=== PATIENT | female | born 1990 | race Caucasian/White ===

== ENCOUNTER → 2016-12-13 | Outpatient (CLI) | payer OTHER ==
[2016-12-13 12:33] LABS: URINE APPEARANCE CLEAR (CLEAR); URINE BILIRUBIN NEG (NEG); URINE COLOR YELLOW; URINE NITRITE NEG (NEG); UROBILINOGEN NEG (NEG)
[2016-12-13 12:37] LABS: MANUAL MICROSCOPIC REQUIRED? NO; REVIEW REQ? NO
== END | disposition home or self-care (01) ==
LOC: C.LABSPEC 12:06
PROVIDERS: ATTEND Obstetrics & Gynecology
DX: O09.90 Supervision of high risk pregnancy, unspecified, unspecified trimester (principal); Z3A.00 Weeks of gestation of pregnancy not specified

== ENCOUNTER → 2016-12-15 | Outpatient (CLI) | payer OTHER | END | disposition home or self-care (01) | LOC: C.PAPS 13:23 | PROVIDERS: ATTEND Obstetrics & Gynecology | DX: O36.80X0 Pregnancy with inconclusive fetal viability, not applicable or unspecified (principal); Z3A.00 Weeks of gestation of pregnancy not specified ==

== ENCOUNTER → 2016-12-15 | Outpatient (CLI) | payer OTHER ==
[2016-12-15 12:42] LABS: BASO % 0.2 %; BASO ABS # 0.02 K/uL (0-0.2); COMPLETE YES; EOS % 3.9 %; HEMATOCRIT 42.3 % (37-47); IG% 0.2 %; LYMPH % 30.6 %; LYMPH ABS # 2.49 K/uL (1.2-3.4); MEAN CELL VOLUME 95.9 fL (80-100); MEAN CORPUSCULAR HEMOGLOBIN 32.2 pg (25-34); MEAN CORPUSCULAR HGB CONC 33.6 g/dl (32-36); MEAN PLATELET VOLUME 9.6 fL (7.4-10.4); MONO % 7.1 %; PLATELET COUNT 397 K/uL (130-400); RED BLOOD COUNT 4.41 M/uL (4.2-5.4); WHITE BLOOD COUNT 8.14 K/uL (4.8-10.8)
[2016-12-17 15:39] LABS: CHLAMYDIA TRACH RNA*** NOT DETECTED (NOT DETECTED); GC (NEIS GONORRHOEAE)RNA** NOT DETECTED (NOT DETECTED)
== END | disposition home or self-care (01) ==
LOC: C.LAB1850 11:01
PROVIDERS: ATTEND Obstetrics & Gynecology
DX: O09.90 Supervision of high risk pregnancy, unspecified, unspecified trimester (principal); O36.80X0 Pregnancy with inconclusive fetal viability, not applicable or unspecified; Z3A.00 Weeks of gestation of pregnancy not specified

== ENCOUNTER → 2016-12-29 | Outpatient (CLI) | payer OTHER ==
[2016-12-29 13:08] LABS: BASO % 0.1 %; BASO ABS # 0.01 K/uL (0-0.2); COMPLETE YES; EOS % 4.1 %; HEMATOCRIT 33.3 % (37-47); IG% 0.1 %; LYMPH % 27.1 %; LYMPH ABS # 1.98 K/uL (1.2-3.4); MEAN CELL VOLUME 96.2 fL (80-100); MEAN CORPUSCULAR HEMOGLOBIN 32.9 pg (25-34); MEAN CORPUSCULAR HGB CONC 34.2 g/dl (32-36); MEAN PLATELET VOLUME 9.7 fL (7.4-10.4); MONO % 5.7 %; NEUT % 62.9 %; PLATELET COUNT 384 K/uL (130-400); RED BLOOD COUNT 3.46 M/uL (4.2-5.4); WHITE BLOOD COUNT 7.31 K/uL (4.8-10.8)
== END | disposition home or self-care (01) ==
LOC: C.LAB1850 11:37
PROVIDERS: ATTEND Obstetrics & Gynecology
DX: O02.1 Missed abortion (principal)

== ENCOUNTER → 2017-01-05 | Outpatient (CLI) | payer OTHER | END | disposition home or self-care (01) | LOC: C.LAB1850 10:34 | PROVIDERS: ATTEND Obstetrics & Gynecology | DX: O02.1 Missed abortion (principal) ==

== ENCOUNTER → 2017-01-12 | Outpatient (CLI) | payer OTHER | END | disposition home or self-care (01) | LOC: C.LAB1850 11:55 | PROVIDERS: ATTEND Obstetrics & Gynecology | DX: O02.1 Missed abortion (principal) ==

== ENCOUNTER → 2017-01-22 | Outpatient (CLI) | payer OTHER | END | disposition home or self-care (01) | LOC: C.LAB1850 12:18 | PROVIDERS: ATTEND Obstetrics & Gynecology | DX: O02.1 Missed abortion (principal) ==

== ENCOUNTER → 2017-01-29 | Outpatient (CLI) | payer OTHER | END | disposition home or self-care (01) | LOC: C.LAB1850 10:21 | PROVIDERS: ATTEND Obstetrics & Gynecology | DX: O02.1 Missed abortion (principal) ==

== ENCOUNTER → 2017-08-08 | Outpatient (CLI) | payer OTHER | END | disposition home or self-care (01) | LOC: C.LAB1850 15:52 | PROVIDERS: ATTEND Obstetrics & Gynecology | DX: Z32.01 Encounter for pregnancy test, result positive (principal); O09.299 Supervision of pregnancy with other poor reproductive or obstetric history, unspecified trimester ==

== ENCOUNTER → 2017-08-10 | Outpatient (CLI) | payer OTHER | END | disposition home or self-care (01) | LOC: C.LAB1850 16:05 | PROVIDERS: ATTEND Obstetrics & Gynecology | DX: Z32.01 Encounter for pregnancy test, result positive (principal); O09.299 Supervision of pregnancy with other poor reproductive or obstetric history, unspecified trimester ==

== ENCOUNTER → 2017-09-04 | Outpatient (CLI) | payer OTHER ==
[2017-09-04 12:02] LABS: BASO % 0.2 %; BASO ABS # 0.02 K/uL (0-0.2); EOS % 1.9 %; HEMATOCRIT 39.9 % (37-47); HEMOGLOBIN 13.7 g/dL (12.0-16.0); IG# 0.04 K/uL (0.00-0.02); LYMPH % 19.5 %; LYMPH ABS # 2.08 K/uL (1.2-3.4); MEAN CELL VOLUME 93.4 fL (80-100); MEAN CORPUSCULAR HEMOGLOBIN 32.1 pg (25-34); MEAN CORPUSCULAR HGB CONC 34.3 g/dl (32-36); MEAN PLATELET VOLUME 9.7 fL (7.4-10.4); MONO % 5.3 %; MONO ABS # 0.57 K/uL (0.11-0.59); NEUT % 72.7 %; NEUT ABS # 7.76 K/uL (1.4-6.5); PLATELET COUNT 364 K/uL (130-400); RED CELL DISTRIBUTION WIDTH CV 12.9 % (11.5-14.5); WHITE BLOOD COUNT 10.67 K/uL (4.8-10.8)
== END | disposition home or self-care (01) ==
LOC: C.LAB1850 11:12
PROVIDERS: ATTEND Obstetrics & Gynecology
DX: Z34.91 Encounter for supervision of normal pregnancy, unspecified, first trimester (principal)

== ENCOUNTER → 2017-09-04 | Outpatient (CLI) | payer OTHER | END | disposition home or self-care (01) | LOC: C.PAPS 14:48 | PROVIDERS: ATTEND Obstetrics & Gynecology | DX: Z12.4 Encounter for screening for malignant neoplasm of cervix (principal) ==

== ENCOUNTER → 2017-09-04 | Outpatient (CLI) | payer OTHER | END | disposition home or self-care (01) | LOC: C.LABSPEC 11:02 | PROVIDERS: ATTEND Obstetrics & Gynecology | DX: Z34.91 Encounter for supervision of normal pregnancy, unspecified, first trimester (principal) ==

== ENCOUNTER → 2017-10-08 | Outpatient (CLI) | payer OTHER ==
[2017-10-08 10:05] LABS: ALBUMIN 3.1 gm/dl (3.4-5.0); ALKALINE PHOSPHATASE 81 U/L (45-117); ALT/SGPT 18 U/L (12-78); AST/SGOT 11 U/L (15-37); TOTAL PROTEIN 7.6 gm/dl (6.4-8.2); URIC ACID 2.6 mg/dl (2.6-7.2)
== END | disposition home or self-care (01) ==
LOC: C.LAB1850 08:52
PROVIDERS: ATTEND Obstetrics & Gynecology
DX: O10.919 Unspecified pre-existing hypertension complicating pregnancy, unspecified trimester (principal); Z3A.00 Weeks of gestation of pregnancy not specified

== ENCOUNTER → 2017-11-07 | Outpatient (CLI) | payer OTHER | END | disposition home or self-care (01) | LOC: C.LAB1850 15:37 | PROVIDERS: ATTEND Obstetrics & Gynecology | DX: O09.92 Supervision of high risk pregnancy, unspecified, second trimester (principal) ==

== ENCOUNTER → 2017-11-22 | Outpatient (CLI) | payer OTHER | END | disposition home or self-care (01) | LOC: C.LAB1850 09:22 | PROVIDERS: ATTEND Obstetrics & Gynecology | DX: O28.1 Abnormal biochemical finding on antenatal screening of mother (principal) ==

== ENCOUNTER → 2018-03-29 | Outpatient (CLI) | payer OTHER | END | disposition home or self-care (01) | LOC: C.LABSPEC 13:57 | PROVIDERS: ATTEND Obstetrics & Gynecology | DX: O09.893 Supervision of other high risk pregnancies, third trimester (principal) ==

== ENCOUNTER 2019-06-18 07:36 | Inpatient (IN) ==
[2019-06-18] MEDS ORDERED: OXYTOCIN 30 UNITS/500 ML BAG IV PRN ×3 (07:48→22:05)
[2019-06-18 08:07] LABS: Hematocrit (blood only) 35.3 % (37-47); Hemoglobin 11.9 g/dL (12.0-16.0); Mean Corpuscular Hemoglobin 30.7 pg (25-34); Mean Platelet Volume 9.1 fL (7.4-10.4); Platelet Count 328 K/uL (130-400); RDW Coefficient of Variation 13.7 % (11.5-14.5); RDW Standard Deviation 44.9 fL (36.4-46.3); Red Blood Count 3.88 M/uL (4.2-5.4); White Blood Count 11.38 K/uL (4.8-10.8)
[2019-06-18 08:09] LABS: Mean Corpuscular Hgb Conc 33.7 g/dL (32-36)
[2019-06-18] MEDS: LACTATED RINGER'S 1,000 ML IV PRN ×4 (08:28→21:35)
--- NOTE | 2019-06-18 08:53 | History & Physical Report ---
Date of Service June 18, 2019 Assessment & Plan (1) Diet controlled gestational diabetes mellitus (GDM), antepartum: First sugar was 147, however, she ate a bagel this am, so will repeat the bs in one hour. Want to keep her between 80-120. Has been diet controlled. (2) Chronic hypertension in : BPs good. No s/s of pet. Plan pitocin induction, epidural on demand. arom when needed/indicated. Anticipate . History of Present Illness Chief Complaint: induction Primary Care Provider: NO PCP Patient is a 29yowf with iup at 38 weeks who presents to labor and delivery for induction of labor for a hx of chronic hypertension. Her pressures have been well controlled this and having induction according to acog justine for the management of chtn in . Patient also has a hx of gdm in previous and is being treated as such in this . Notes her sugars have been well controlled on diet. Growth scan at 36 weeks showed efw 43%, nl dvp. Patient notes no real contractions. no lof/vb. +fm. Patient had palpitations in this and had holter monitor in the summer and consult with cards without significant findings. Denies s/s of PET at this time. BPs good. labsO+/ab-/ri/rprnr/hepb-/hiv-/gc/ct-/declined cf/sma/ declines genetics/gbs negative Allergies Allergy/AdvReac Type Severity Reaction Status Date / Time No Known Allergies Allergy Verified 06/17/19 13:42 Home Medications Home Medications Medication Instructions Recorded Confirmed Type albuterol sulfate 90 mcg/actuation 90 mcg INHALATION Q4 PRN gm 03/04/19 06/18/19 History aerosol inhaler aspirin 81 mg tablet,delayed 81 mg PO DAILY 03/04/19 06/18/19 History release prenat.vits,karli,rrd-vnqg-ytenb 1 tab PO DAILY 03/04/19 06/18/19 History Patient History Medical History (Updated 06/18/19 @ 08:48 by Cadence Irizarry MD, FACOG) Asthma Chronic hypertension affecting Diet controlled gestational diabetes mellitus DJD (degenerative joint disease) History of asthma History of pre-eclampsia History of spontaneous History of varicella Migraine Surgical History (Updated 04/05/19 @ 14:51 by Juan A Guan Jr, MD, FACOG) H/O cornea transplant S/P bilateral foot surgery (Resolved) Patient reports MRSA after foot surgery 4 years ago. Family History (Updated 03/10/19 @ 09:43 by Nallely Jacobson) Mother Dyslipidemia Hypertension Father Dyslipidemia Grandfather (Maternal) Dyslipidemia Other Diabetes Social History (Updated 03/10/19 @ 09:44 by Nallely Jacobson) Preferred Language: Spanish Communication Ability: Effective Manager Family Required: No Beliefs That Will Affect Care: None marital status: Current Living Situation: Spouse Current Living Situation Comment: Lives with and two children. Other Information That Helps Us Care for You: No Feels Safe at Home: Yes Safety Concerns: Feels Safe At This Time Smoking Status: Never smoker Second Hand Exposure: No ; Hx Alcohol Use: No Hx Substance Use: No OB History g1--04/16, , 8#7oz, preeclampsia around 29 weeks, delivered 41 weeks g2--04/23, , 8#12oz, g3--date not recorded sab [employer] History no stds, no abnl paps Review of Systems All systems reviewed & are unremarkable except as noted in HPI & below Physical Exam Constitutional: WD/WN, vitals as above Gastrointestinal (Abdomen): soft, gravid, nt Neurologic: Dtrs +1/2 Psychiatric: A+Ox3, euthymic affect Genitourinary: cx--3/50/-2/mid/mod toco--none efm--140s with mod variability, accels to 170s, no decels. Results & Data Vital Signs (Past 12 Hours) Vital Signs Temp Pulse Resp BP 06/18/19 08:20 100 H 121/71 06/18/19 08:05 97 H 132/80 06/18/19 07:54 36.4 C L 18 06/18/19 07:47 89 136/68
[2019-06-18] MEDS ORDERED: fentaNYL citrate 100 MCG/2 ML VIAL ONE (12:10)
[2019-06-18] MEDS ORDERED: ePHEDrine sulfate 50 MG/ML AMP ONE (12:10)
[2019-06-18] MEDS ORDERED: fentaNYL 2MCG/ML ROPIV 1.25MG/ML 100 ML BAG EPI ONE (12:11)
[2019-06-18] MEDS ORDERED: BUPIVACAINE 0.25% 30 ML VIAL ONE (12:11)
[2019-06-18] MEDS ORDERED: NALBUPHINE HCL INJ 10 MG/ML AMP IV PRN (12:24)
[2019-06-18] MEDS ORDERED: ONDANSETRON INJ 2 MG/ML 2 ML VIAL IV PRN (12:24)
[2019-06-18] MEDS ORDERED: fentaNYL 2MCG/ML ROPIV 1.25MG/ML 100 ML BAG EPI PRN (12:24)
[2019-06-18] MEDS ORDERED: DiphenhydrAMINE HCL 50 MG/ML VIAL IV PRN (12:24)
[2019-06-18] MEDS ORDERED: NALOXONE HCL 0.4 MG/1 ML VIAL/CARP IV PRN (12:24)
[2019-06-18] MEDS ORDERED: ePHEDrine sulfate 50 MG/ML AMP IV PRN (12:24)
[2019-06-18] MEDS ORDERED: NALOXONE HCL 1 MG in SODIUM CHLORIDE 0.9% 1000ML 1,000 ML IV PRN (12:24)
--- NOTE | 2019-06-18 12:33 | Anesthesiology Consultation ---
Date of Service June 18, 2019 Assessment & Plan Chart Review Chart Review: Patient NOT seen in Pre Admission Testing and Acceptable Risk for Labor Epidural Consults Requested none ASA ASA2 Proposed Anesthesia Anesthesia Type: Labor Epidural and CSE Risk / Benefits Reviewed With: PT / POA / Parent / Guardian, Accepts Plan and Informed Consent Obtained History Height/Weight Height: 5 ft 9 in Weight: 277 kg Allergies Allergy/AdvReac Type Severity Reaction Status Date / Time No Known Allergies Allergy Verified 06/17/19 13:42 Medications Home Medications Medication Instructions Recorded Confirmed Last Taken albuterol sulfate 90 mcg/actuation 90 mcg INHALATION Q4 PRN gm 03/04/19 06/18/19 06/18/19 07:00 aerosol inhaler aspirin 81 mg tablet,delayed 81 mg PO DAILY 03/04/19 06/18/19 06/11/19 release prenat.vits,karli,hoy-ppvm-umfsv 1 tab PO DAILY 03/04/19 06/18/19 06/15/19 Active Medications Generic Name Dose Route Start Last Admin Trade Name Freq PRN Reason Stop Dose Admin Lactated Ringer's 1,000 mls @ 125 mls/hr 06/18/19 07:48 06/18/19 12:10 Lr IV 06/20/19 07:47 999 mls/hr .Q8H PRN Infusion L&D Protocol Protocol Oxytocin 30 units in 500 mls @ 11 mls/hr 06/18/19 07:48 06/18/19 12:00 Pitocin IV 06/20/19 07:47 0.66 units/hr .Q24H PRN 11 mls/hr Labor Induction/Augmentation Titration Protocol 0.66 UNITS/HR NPO Date Last Intake of Fluids: 06/18/19 Time Last Intake of Fluids: 09:00 Date Last Intake of Solids: 06/18/19 Time Last Intake of Solids: 07:00 Past Medical History Medical History (Updated 06/18/19 @ 12:32 by Cameron Joy MD) Asthma Chronic hypertension affecting Diet controlled gestational diabetes mellitus DJD (degenerative joint disease) back, R leg pain History of asthma History of pre-eclampsia History of spontaneous History of varicella Migraine Exercise / Class Metabolic Activity II 4-5 Yardwork/Stairs/Walk up hill Past Family History Family History Mother Dyslipidemia Hypertension Father Dyslipidemia Grandfather (Maternal) Dyslipidemia Other Diabetes Past Surgical History Surgical History H/O cornea transplant S/P bilateral foot surgery (Resolved) Patient reports MRSA after foot surgery 4 years ago. Past Anesthesia History No Hx of Anesthesia Complications and No Family Hx of Anesthesia Complications History of PONV No Hx of PONV and No Hx of Motion Sickness Social History Smoking Status: Never smoker Hx Alcohol Use: No Hx Substance Use: No Review of Systems no chest pain or sob Physical Exam Vital Signs Last Vital Signs Temp 36.7 C 06/18/19 10:45 Pulse 97 H 06/18/19 12:31 Resp 18 06/18/19 12:07 BP 150/84 H 06/18/19 12:28 Pulse Ox 91 06/18/19 12:31 ENMT Mouth: no TMJ abnormality Thyromental Distance: > or= 3.5 Finger Breadths Mallampati Class: II Neck normal visual inspection Respiratory normal respiratory effort Auscultation: lungs clear to auscultation bilaterally Cardiovascular Rate/Rhythm: regular rate and regular rhythm Musculoskeletal Spine: normal cervical ROM Neurologic moves all extremities Psychiatric Orientation: alert and oriented x 3 Testing Laboratory Results 06/18/19 07:57 06/18/19 06/18/19 09:27 08:32 POC Glucose 108 H 147 H
--- NOTE | 2019-06-18 13:38 | Obstetrical Progress Note ---
Date of Service June 18, 2019 Assessment & Plan (1) Diet controlled gestational diabetes mellitus (GDM), antepartum: continue to monitor sugars with goal of 80-120 (2) Chronic hypertension in : bps stable. Continue current management for induction. fetus category one. Subjective comfortable after epidural Physical Exam Constitutional: WD/WN, vitals as above Psychiatric: A+Ox3, euthymic affect Genitourinary: cx--3-4/60/-2 arom--minimal clear toco--q2-4min, pit at 13 efm--130s wtih mod variability, accels present, no decels Results & Data Vital Signs (Past 12 Hours) Vital Signs Temp Pulse Resp BP Pulse Ox 06/18/19 13:35 107 H 139/85 06/18/19 13:33 101 H 100 06/18/19 13:28 98 H 131/73 100 06/18/19 13:25 89 93 06/18/19 13:23 96 H 100 06/18/19 13:21 93 H 142/77 H 06/18/19 13:19 104 H 138/76 06/18/19 13:18 104 H 99 06/18/19 13:17 93 H 132/76 06/18/19 13:15 99 H 122/76 06/18/19 13:13 104 H 149/72 H 100 06/18/19 13:11 92 H 144/76 H 06/18/19 13:09 101 H 141/64 H 06/18/19 13:08 98 H 99 06/18/19 13:07 90 16 142/69 H 06/18/19 13:05 96 H 147/78 H 06/18/19 13:03 101 H 16 145/84 H 100 06/18/19 13:01 100 H 143/76 H 06/18/19 12:59 118 H 16 126/59 L 06/18/19 12:58 106 H 100 06/18/19 12:57 109 H 16 131/60 06/18/19 12:55 111 H 140/59 L 06/18/19 12:53 101 H 16 145/65 H 98 06/18/19 12:51 111 H 16 140/78 06/18/19 12:49 97 H 16 137/67 06/18/19 12:48 91 H 99 06/18/19 12:47 94 H 16 136/75 06/18/19 12:45 85 138/70 06/18/19 12:43 88 142/70 H 98 06/18/19 12:38 116 H 100 06/18/19 12:33 81 100 06/18/19 12:31 97 H 91 06/18/19 12:28 93 H 150/84 H 100 06/18/19 12:26 93 H 180/90 H 06/18/19 12:23 101 H 100 06/18/19 12:18 83 100 06/18/19 12:13 90 97 06/18/19 12:08 85 99 06/18/19 12:07 85 18 146/88 H 06/18/19 10:45 36.7 C 20 06/18/19 10:44 76 138/72 06/18/19 10:03 85 128/77 06/18/19 09:01 91 H 141/70 H 06/18/19 08:59 89 173/86 H 06/18/19 08:20 100 H 121/71 06/18/19 08:05 97 H 132/80 06/18/19 07:54 36.4 C L 18 06/18/19 07:47 89 136/68 PG Care Time/CCT Total # of Minutes Spent Total Time Spent with Patient: Total time spent is greater than 50% in coordin ation of care (as documented) at patient's floor/unit and/or counseling patient:
[2019-06-18] MEDS ORDERED: ACETAMINOPHEN 325 MG TAB PO STA (17:12)
--- NOTE | 2019-06-18 19:28 | Obstetrical Progress Note ---
Date of Service June 18, 2019 Assessment & Plan (1) Diet controlled gestational diabetes mellitus (GDM), antepartum: BS are within range (2) Chronic hypertension in : Pressures stable, continue pit to 200 mvus. fetus reassuring. anticipate . Subjective late entry patient still fairly comfortable with epidural pit now at 21 at 5pm Physical Exam Constitutional: WD/WN, vitals as above Psychiatric: A+Ox3, euthymic affect Genitourinary: cx--unchanged, do not feel membranes toco--q 2-4min, pit at 21 efm--category one iupc placed Results & Data Vital Signs (Past 12 Hours) Vital Signs Temp Pulse Resp BP Pulse Ox 06/18/19 19:23 81 98 06/18/19 19:18 36.7 C 84 18 98 06/18/19 19:13 90 98 06/18/19 19:10 85 130/68 06/18/19 19:09 96 H 93 06/18/19 19:08 78 98 06/18/19 19:03 85 98 06/18/19 18:58 83 98 06/18/19 18:55 81 142/67 H 06/18/19 18:53 85 98 06/18/19 18:48 78 99 06/18/19 18:43 104 H 92 06/18/19 18:39 75 125/58 L 06/18/19 18:38 79 98 06/18/19 18:33 77 98 06/18/19 18:28 84 98 06/18/19 18:24 80 123/58 L 06/18/19 18:23 83 98 06/18/19 18:18 109 H 95 06/18/19 18:13 93 H 99 06/18/19 18:09 85 119/58 L 06/18/19 18:08 80 98 06/18/19 18:03 80 99 06/18/19 18:00 18 06/18/19 17:59 85 125/58 L 06/18/19 17:58 85 99 06/18/19 17:53 87 98 06/18/19 17:48 89 98 06/18/19 17:43 89 100 06/18/19 17:38 86 99 06/18/19 17:33 81 99 06/18/19 17:28 78 99 06/18/19 17:24 85 113/57 L 06/18/19 17:23 100 H 99 06/18/19 17:18 83 99 06/18/19 17:13 81 100 06/18/19 17:10 82 129/58 L 06/18/19 17:09 37.0 C 85 20 114/61 06/18/19 17:08 88 100 06/18/19 17:04 18 06/18/19 17:03 89 100 06/18/19 16:58 99 H 100 06/18/19 16:54 85 124/60 06/18/19 16:53 90 99 06/18/19 16:48 95 H 98 06/18/19 16:43 91 H 99 06/18/19 16:39 88 134/64 06/18/19 16:38 80 99 06/18/19 16:33 96 H 98 06/18/19 16:28 87 100 06/18/19 16:24 76 18 130/65 06/18/19 16:23 73 97 06/18/19 16:18 81 98 06/18/19 16:13 79 100 06/18/19 16:09 93 H 135/67 06/18/19 16:08 97 H 97 06/18/19 16:03 85 100 06/18/19 16:00 20 06/18/19 15:58 89 100 06/18/19 15:57 83 93 06/18/19 15:54 80 134/71 06/18/19 15:53 78 100 06/18/19 15:48 88 93 06/18/19 15:43 91 H 99 06/18/19 15:39 82 136/67 06/18/19 15:38 92 H 20 100 06/18/19 15:33 87 100 06/18/19 15:28 87 100 06/18/19 15:25 87 137/82 06/18/19 15:23 99 H 100 06/18/19 15:18 84 99 06/18/19 15:13 82 100 06/18/19 15:10 87 120/65 06/18/19 15:08 88 100 06/18/19 15:06 93 H 91 06/18/19 15:03 88 100 06/18/19 14:58 85 100 06/18/19 14:55 36.6 C 87 20 132/60 06/18/19 14:53 85 100 06/18/19 14:50 94 H 93 06/18/19 14:48 86 100 06/18/19 14:43 95 H 99 06/18/19 14:42 100 H 91 06/18/19 14:40 89 20 126/64 06/18/19 14:38 86 100 06/18/19 14:33 91 H 96 06/18/19 14:28 91 H 97 06/18/19 14:25 82 112/61 06/18/19 14:23 73 98 06/18/19 14:18 85 100 06/18/19 14:13 80 99 06/18/19 14:10 86 117/61 06/18/19 14:08 78 99 06/18/19 14:03 88 99 06/18/19 13:58 89 100 06/18/19 13:54 88 131/60 06/18/19 13:53 82 100 06/18/19 13:48 87 100 06/18/19 13:43 89 100 06/18/19 13:39 88 135/63 06/18/19 13:38 90 99 06/18/19 13:36 36.6 C 18 06/18/19 13:35 107 H 139/85 06/18/19 13:33 101 H 100 06/18/19 13:28 98 H 131/73 100 06/18/19 13:25 89 93 06/18/19 13:23 96 H 100 06/18/19 13:21 93 H 142/77 H 06/18/19 13:19 104 H 138/76 06/18/19 13:18 104 H 99 06/18/19 13:17 93 H 132/76 06/18/19 13:15 99 H 122/76 06/18/19 13:13 104 H 149/72 H 100 06/18/19 13:11 92 H 144/76 H 06/18/19 13:09 101 H 141/64 H 06/18/19 13:08 98 H 99 06/18/19 13:07 90 16 142/69 H 06/18/19 13:05 96 H 147/78 H 06/18/19 13:03 101 H 16 145/84 H 100 06/18/19 13:01 100 H 143/76 H 06/18/19 12:59 118 H 16 126/59 L 06/18/19 12:58 106 H 100 06/18/19 12:57 109 H 16 131/60 06/18/19 12:55 111 H 140/59 L 06/18/19 12:53 101 H 16 145/65 H 98 06/18/19 12:51 111 H 16 140/78 06/18/19 12:49 97 H 16 137/67 06/18/19 12:48 91 H 99 06/18/19 12:47 94 H 16 136/75 06/18/19 12:45 85 138/70 06/18/19 12:43 88 142/70 H 98 06/18/19 12:38 116 H 100 06/18/19 12:33 81 100 06/18/19 12:31 97 H 91 06/18/19 12:28 93 H 150/84 H 100 06/18/19 12:26 93 H 180/90 H 06/18/19 12:23 101 H 100 06/18/19 12:18 83 100 06/18/19 12:13 90 97 06/18/19 12:08 85 99 06/18/19 12:07 85 18 146/88 H 06/18/19 10:45 36.7 C 20 06/18/19 10:44 76 138/72 06/18/19 10:03 85 128/77 06/18/19 09:01 91 H 141/70 H 06/18/19 08:59 89 173/86 H 06/18/19 08:20 100 H 121/71 06/18/19 08:05 97 H 132/80 06/18/19 07:54 36.4 C L 18 06/18/19 07:47 89 136/68 PG Care Time/CCT Total # of Minutes Spent Total Time Spent with Patient: Total time spent is greater than 50% in coordination of care (as documented) at patient's floor/unit and/or counseling patient:
--- NOTE | 2019-06-18 19:36 | Obstetrical Progress Note ---
Date of Service June 18, 2019 Assessment & Plan (1) Chronic hypertension in : Starting to make change. Fetus overall reassuring. anticipate . Subjective comfortable Physical Exam Constitutional: WD/WN, vitals as above Psychiatric: A+Ox3, euthymic affect Genitourinary: cx--4+/80/-2 toco--q2-3min, pit at 21, adequate per mvus efm--150s with mod variability, accels present, + scalp stim, occasional early decels Results & Data Vital Signs (Past 12 Hours) Vital Signs Temp Pulse Resp BP Pulse Ox 06/18/19 19:28 84 98 06/18/19 19:23 81 98 06/18/19 19:18 36.7 C 84 18 98 06/18/19 19:13 90 98 06/18/19 19:10 85 130/68 06/18/19 19:09 96 H 93 06/18/19 19:08 78 98 06/18/19 19:03 85 98 06/18/19 18:58 83 98 06/18/19 18:55 81 142/67 H 06/18/19 18:53 85 98 06/18/19 18:48 78 99 06/18/19 18:43 104 H 92 06/18/19 18:39 75 125/58 L 06/18/19 18:38 79 98 06/18/19 18:33 77 98 06/18/19 18:28 84 98 06/18/19 18:24 80 123/58 L 06/18/19 18:23 83 98 06/18/19 18:18 109 H 95 06/18/19 18:13 93 H 99 06/18/19 18:09 85 119/58 L 06/18/19 18:08 80 98 06/18/19 18:03 80 99 06/18/19 18:00 18 06/18/19 17:59 85 125/58 L 06/18/19 17:58 85 99 06/18/19 17:53 87 98 06/18/19 17:48 89 98 06/18/19 17:43 89 100 06/18/19 17:38 86 99 06/18/19 17:33 81 99 06/18/19 17:28 78 99 06/18/19 17:24 85 113/57 L 06/18/19 17:23 100 H 99 06/18/19 17:18 83 99 06/18/19 17:13 81 100 06/18/19 17:10 82 129/58 L 06/18/19 17:09 37.0 C 85 20 114/61 06/18/19 17:08 88 100 06/18/19 17:04 18 06/18/19 17:03 89 100 06/18/19 16:58 99 H 100 06/18/19 16:54 85 124/60 06/18/19 16:53 90 99 06/18/19 16:48 95 H 98 06/18/19 16:43 91 H 99 06/18/19 16:39 88 134/64 06/18/19 16:38 80 99 06/18/19 16:33 96 H 98 06/18/19 16:28 87 100 06/18/19 16:24 76 18 130/65 06/18/19 16:23 73 97 06/18/19 16:18 81 98 06/18/19 16:13 79 100 06/18/19 16:09 93 H 135/67 06/18/19 16:08 97 H 97 06/18/19 16:03 85 100 06/18/19 16:00 20 06/18/19 15:58 89 100 06/18/19 15:57 83 93 06/18/19 15:54 80 134/71 06/18/19 15:53 78 100 06/18/19 15:48 88 93 06/18/19 15:43 91 H 99 06/18/19 15:39 82 136/67 06/18/19 15:38 92 H 20 100 06/18/19 15:33 87 100 06/18/19 15:28 87 100 06/18/19 15:25 87 137/82 06/18/19 15:23 99 H 100 06/18/19 15:18 84 99 06/18/19 15:13 82 100 06/18/19 15:10 87 120/65 06/18/19 15:08 88 100 06/18/19 15:06 93 H 91 06/18/19 15:03 88 100 06/18/19 14:58 85 100 06/18/19 14:55 36.6 C 87 20 132/60 06/18/19 14:53 85 100 06/18/19 14:50 94 H 93 06/18/19 14:48 86 100 06/18/19 14:43 95 H 99 06/18/19 14:42 100 H 91 06/18/19 14:40 89 20 126/64 06/18/19 14:38 86 100 06/18/19 14:33 91 H 96 06/18/19 14:28 91 H 97 06/18/19 14:25 82 112/61 06/18/19 14:23 73 98 06/18/19 14:18 85 100 06/18/19 14:13 80 99 06/18/19 14:10 86 117/61 06/18/19 14:08 78 99 06/18/19 14:03 88 99 06/18/19 13:58 89 100 06/18/19 13:54 88 131/60 06/18/19 13:53 82 100 06/18/19 13:48 87 100 06/18/19 13:43 89 100 06/18/19 13:39 88 135/63 06/18/19 13:38 90 99 06/18/19 13:36 36.6 C 18 06/18/19 13:35 107 H 139/85 06/18/19 13:33 101 H 100 06/18/19 13:28 98 H 131/73 100 06/18/19 13:25 89 93 06/18/19 13:23 96 H 100 06/18/19 13:21 93 H 142/77 H 06/18/19 13:19 104 H 138/76 06/18/19 13:18 104 H 99 06/18/19 13:17 93 H 132/76 06/18/19 13:15 99 H 122/76 06/18/19 13:13 104 H 149/72 H 100 06/18/19 13:11 92 H 144/76 H 06/18/19 13:09 101 H 141/64 H 06/18/19 13:08 98 H 99 06/18/19 13:07 90 16 142/69 H 06/18/19 13:05 96 H 147/78 H 06/18/19 13:03 101 H 16 145/84 H 100 06/18/19 13:01 100 H 143/76 H 06/18/19 12:59 118 H 16 126/59 L 06/18/19 12:58 106 H 100 06/18/19 12:57 109 H 16 131/60 06/18/19 12:55 111 H 140/59 L 06/18/19 12:53 101 H 16 145/65 H 98 06/18/19 12:51 111 H 16 140/78 06/18/19 12:49 97 H 16 137/67 06/18/19 12:48 91 H 99 06/18/19 12:47 94 H 16 136/75 06/18/19 12:45 85 138/70 06/18/19 12:43 88 142/70 H 98 06/18/19 12:38 116 H 100 06/18/19 12:33 81 100 06/18/19 12:31 97 H 91 06/18/19 12:28 93 H 150/84 H 100 06/18/19 12:26 93 H 180/90 H 06/18/19 12:23 101 H 100 06/18/19 12:18 83 100 06/18/19 12:13 90 97 06/18/19 12:08 85 99 06/18/19 12:07 85 18 146/88 H 06/18/19 10:45 36.7 C 20 06/18/19 10:44 76 138/72 06/18/19 10:03 85 128/77 06/18/19 09:01 91 H 141/70 H 06/18/19 08:59 89 173/86 H 06/18/19 08:20 100 H 121/71 06/18/19 08:05 97 H 132/80 06/18/19 07:54 36.4 C L 18 06/18/19 07:47 89 136/68 PG Care Time/CCT Total # of Minutes Spent Total Time Spent with Patient: Total time spent is greater than 50% in coordination of care (as documented) at patient's floor/unit and/or counseling patient:
[2019-06-18] MEDS ORDERED: Nursing to Pharmacy Communication ONE (19:54)
--- NOTE | 2019-06-18 21:36 | Obstetrical Progress Note ---
Date of Service June 18, 2019 Assessment & Plan (1) Chronic hypertension in : Moving now. Anticipate rapid movement to delivery. Fetus overall reassuring. anticipate . Subjective getting uncomfortable, pushing epidural button Physical Exam Constitutional: WD/WN, vitals as above Psychiatric: A+Ox3, euthymic affect Genitourinary: cx--8/100/-1 toco--q2-4min efm--130s with mod variability, early/variable with contractions, scalp stim. Results & Data Vital Signs (Past 12 Hours) Vital Signs Temp Pulse Resp BP Pulse Ox 06/18/19 21:28 97 H 100 06/18/19 21:25 90 125/62 06/18/19 21:23 84 100 06/18/19 21:18 80 100 06/18/19 21:13 79 98 06/18/19 21:09 84 120/57 L 06/18/19 21:08 84 99 06/18/19 21:03 82 99 06/18/19 20:58 81 97 06/18/19 20:54 94 H 122/58 L 06/18/19 20:53 99 H 97 06/18/19 20:48 89 98 06/18/19 20:43 90 98 06/18/19 20:40 18 06/18/19 20:39 104 H 112/56 L 06/18/19 20:38 97 H 97 06/18/19 20:33 99 H 98 06/18/19 20:28 92 H 97 06/18/19 20:26 18 06/18/19 20:24 90 116/57 L 06/18/19 20:23 90 97 06/18/19 20:18 95 H 99 06/18/19 20:13 96 H 99 06/18/19 20:09 94 H 123/61 06/18/19 20:08 89 98 06/18/19 20:03 96 H 97 06/18/19 19:59 18 06/18/19 19:58 90 98 06/18/19 19:54 99 H 108/70 06/18/19 19:53 94 H 98 06/18/19 19:48 98 H 99 06/18/19 19:43 105 H 97 06/18/19 19:40 109 H 127/76 06/18/19 19:38 96 H 98 06/18/19 19:34 105 H 92 06/18/19 19:33 95 H 135/62 98 06/18/19 19:28 84 98 06/18/19 19:23 81 98 06/18/19 19:18 36.7 C 84 18 98 06/18/19 19:13 90 98 06/18/19 19:10 85 130/68 06/18/19 19:09 96 H 93 06/18/19 19:08 78 98 06/18/19 19:03 85 98 06/18/19 18:58 83 98 06/18/19 18:55 81 142/67 H 06/18/19 18:53 85 98 06/18/19 18:48 78 99 06/18/19 18:43 104 H 92 06/18/19 18:39 75 125/58 L 06/18/19 18:38 79 98 06/18/19 18:33 77 98 06/18/19 18:28 84 98 06/18/19 18:24 80 123/58 L 06/18/19 18:23 83 98 06/18/19 18:18 109 H 95 06/18/19 18:13 93 H 99 06/18/19 18:09 85 119/58 L 06/18/19 18:08 80 98 06/18/19 18:03 80 99 06/18/19 18:00 18 06/18/19 17:59 85 125/58 L 06/18/19 17:58 85 99 06/18/19 17:53 87 98 06/18/19 17:48 89 98 06/18/19 17:43 89 100 06/18/19 17:38 86 99 06/18/19 17:33 81 99 06/18/19 17:28 78 99 06/18/19 17:24 85 113/57 L 06/18/19 17:23 100 H 99 06/18/19 17:18 83 99 06/18/19 17:13 81 100 06/18/19 17:10 82 129/58 L 06/18/19 17:09 37.0 C 85 20 114/61 06/18/19 17:08 88 100 06/18/19 17:04 18 06/18/19 17:03 89 100 06/18/19 16:58 99 H 100 06/18/19 16:54 85 124/60 11/13/19 16:53 90 99 06/18/19 16:48 95 H 98 06/18/19 16:43 91 H 99 06/18/19 16:39 88 134/64 06/18/19 16:38 80 99 06/18/19 16:33 96 H 98 06/18/19 16:28 87 100 06/18/19 16:24 76 18 130/65 06/18/19 16:23 73 97 06/18/19 16:18 81 98 06/18/19 16:13 79 100 06/18/19 16:09 93 H 135/67 06/18/19 16:08 97 H 97 06/18/19 16:03 85 100 06/18/19 16:00 20 06/18/19 15:58 89 100 06/18/19 15:57 83 93 06/18/19 15:54 80 134/71 06/18/19 15:53 78 100 06/18/19 15:48 88 93 06/18/19 15:43 91 H 99 06/18/19 15:39 82 136/67 06/18/19 15:38 92 H 20 100 06/18/19 15:33 87 100 06/18/19 15:28 87 100 06/18/19 15:25 87 137/82 06/18/19 15:23 99 H 100 06/18/19 15:18 84 99 06/18/19 15:13 82 100 06/18/19 15:10 87 120/65 06/18/19 15:08 88 100 06/18/19 15:06 93 H 91 06/18/19 15:03 88 100 06/18/19 14:58 85 100 06/18/19 14:55 36.6 C 87 20 132/60 06/18/19 14:53 85 100 06/18/19 14:50 94 H 93 06/18/19 14:48 86 100 06/18/19 14:43 95 H 99 06/18/19 14:42 100 H 91 06/18/19 14:40 89 20 126/64 06/18/19 14:38 86 100 06/18/19 14:33 91 H 96 06/18/19 14:28 91 H 97 06/18/19 14:25 82 112/61 06/18/19 14:23 73 98 06/18/19 14:18 85 100 06/18/19 14:13 80 99 06/18/19 14:10 86 117/61 06/18/19 14:08 78 99 06/18/19 14:03 88 99 06/18/19 13:58 89 100 06/18/19 13:54 88 131/60 06/18/19 13:53 82 100 06/18/19 13:48 87 100 06/18/19 13:43 89 100 06/18/19 13:39 88 135/63 06/18/19 13:38 90 99 06/18/19 13:36 36.6 C 18 06/18/19 13:35 107 H 139/85 06/18/19 13:33 101 H 100 06/18/19 13:28 98 H 131/73 100 06/18/19 13:25 89 93 06/18/19 13:23 96 H 100 06/18/19 13:21 93 H 142/77 H 06/18/19 13:19 104 H 138/76 06/18/19 13:18 104 H 99 06/18/19 13:17 93 H 132/76 06/18/19 13:15 99 H 122/76 06/18/19 13:13 104 H 149/72 H 100 06/18/19 13:11 92 H 144/76 H 06/18/19 13:09 101 H 141/64 H 06/18/19 13:08 98 H 99 06/18/19 13:07 90 16 142/69 H 06/18/19 13:05 96 H 147/78 H 06/18/19 13:03 101 H 16 145/84 H 100 06/18/19 13:01 100 H 143/76 H 06/18/19 12:59 118 H 16 126/59 L 06/18/19 12:58 106 H 100 06/18/19 12:57 109 H 16 131/60 06/18/19 12:55 111 H 140/59 L 06/18/19 12:53 101 H 16 145/65 H 98 06/18/19 12:51 111 H 16 140/78 06/18/19 12:49 97 H 16 137/67 06/18/19 12:48 91 H 99 06/18/19 12:47 94 H 16 136/75 06/18/19 12:45 85 138/70 06/18/19 12:43 88 142/70 H 98 06/18/19 12:38 116 H 100 06/18/19 12:33 81 100 06/18/19 12:31 97 H 91 06/18/19 12:28 93 H 150/84 H 100 06/18/19 12:26 93 H 180/90 H 06/18/19 12:23 101 H 100 06/18/19 12:18 83 100 06/18/19 12:13 90 97 06/18/19 12:08 85 99 06/18/19 12:07 85 18 146/88 H 06/18/19 10:45 36.7 C 20 06/18/19 10:44 76 138/72 06/18/19 10:03 85 128/77 PG Care Time/CCT Total # of Minutes Spent Total Time Spent with Patient: Total time spent is greater than 50% in coordination of care (as documented) at patient's floor/unit and/or counseling patient:
[2019-06-18] MEDS ORDERED: ACETAMINOPHEN 325 MG TAB PO PRN (22:05)
--- NOTE | 2019-06-18 22:06 | Anesthesia Procedure Note ---
Date of Service June 18, 2019 Anesthesia Post Epidural Note Vital Signs Vital Signs: Temp Pulse Resp BP Pulse Ox 36.6 C 105 H 16 152/67 H 98 06/18/19 21:00 06/18/19 22:03 06/18/19 21:37 06/18/19 21:41 06/18/19 22:03 Notes Mental Status: alert / awake / arousable and participated in evaluation Nausea / Vomiting: adequately controlled Pain: adequately controlled Airway Patency, RR, SpO2: stable & adequate BP & HR: stable & adequate Hydration State: stable & adequate Neuraxial Anesthesia: was administered and sensory block is resolving Anesthetic Complications: no major complications apparent and Pt Satisfied with anesthetic care Epidural: Removed without complications and With tip intact
--- NOTE | 2019-06-18 22:08 | Delivery Summary ---
Vaginal Delivery Summary Date of Service June 18, 2019 Vaginal Delivery Summary Pre-operative Diagnosis: at 38 weeks CHTN [id number] Post-operative Diagnosis: same Procedure: pitocin epidural arom first degree laceration with repair EBL: 400cc Anesthesia: epidural Procedure: The patient pushed for 2 contractions to deliver a viable female in ROSEMARIE position. There was a nuchal cord but the baby was quickly delivered through it. The baby was vigorous. The nose and mouth were bulb suctioned and the was placed in the maternal abdomen for drying and attention. Cord was clamped and cut at one minute of life. Cord blood and segment obtained. Placenta delivered spontaneous, intact with a three vessel cord. Cervix/sulci/rectum were intact. A first degree perineal laceration was repaired in the normal standard fashion. Hemostasis obtained with dilute pitocin and fundal massage. Apgars were 8/9. Mother and baby doing well at the end of the delivery.
[2019-06-19] MEDS ORDERED: SUPERCREAM 0.870% 15 GM JAR EXT PRN (01:00)
[2019-06-19] MEDS ORDERED: ALBUTEROL HFA 8 GM INHALER INH PRN (01:00)
[2019-06-19] MEDS ORDERED: HYDROCORTISONE ACETATE 25 MG SUPP PR PRN (01:00)
[2019-06-19] MEDS ORDERED: DIPHTHERIA/TETANUS/PERTUSSIS 0.5 ML SYR/VIAL IM ONE (01:00)
[2019-06-19] MEDS ORDERED: BISACODYL 10 MG SUPP PR PRN (01:00)
[2019-06-19] MEDS ORDERED: BENZOCAINE 20% AER SPR 82.5 GM CAN EXT PRN (01:00)
[2019-06-19] MEDS: IBUPROFEN 600 MG TAB PO PRN ×5 (01:02→23:12)
[2019-06-19 06:27] LABS: Hematocrit (blood only) 34.6 % (37-47); Hemoglobin 11.5 g/dL (12.0-16.0)
--- NOTE | 2019-06-19 06:27 | Obstetrical Progress Note ---
Date of Service June 19, 2019 Assessment & Plan (1) : -PPD#1 -Vitals reviewed, slight BP elevations overnight, max BP 148/95. Patient denies headache, RUQ pain, edema - GBS -, Blood Type O+ - Clinically stable. - Feels well today. Eating well, voiding well, ambulating well. - Pain well controlled. - Routine post- care - After discharge will have [address] Irizarry Day #:: 1 Subjective Ambulation: ambulating normally Voiding: no voiding problems Passing Gas:: Yes Diet Tolerance:: regular diet Lochia:: Moderate Feeding Type:: breast feeding Current Pain Level(1-10): 6 (only with cramping, 0/10 at rest, improves with analgesics) Patient is a 29 PPD#1. Patient states that she is feeling well today and that her pain is well controlled. She does note that her cramps are fairly intense when she breast feeds, but expected such. She has no other complaints at this time. Constitutional: no fever and no chills Respiratory: no cough, no dyspnea and no wheezing Cardiovascular: no chest pain, no dyspnea, no palpitations, no edema and no calf pain Breast: no breast pain Gastrointestinal: no abdominal pain, no nausea and no vomiting Notes cramping with Genitourinary (female): no dysuria and no difficulty urinating Neurologic: no headache(s) Physical Exam Constitutional WD/WN, vitals as above Respiratory normal respiratory effort, lungs clear to auscultation Cardiovascular Rate/Rhythm: regular rate and regular rhythm Heart Sounds: normal S1 and normal S2; no click, no gallop, no murmur and no cardiac rub Extremities: no calf tenderness and no edema Gastrointestinal (Abdomen) Inspection/Auscultation: abdomen normal to inspection and normal bowel sounds Percussion/Palpation: + abdomen tender (slight TTP lower quadrants, appropriate) and abdomen soft Genitourinary OB Exam Abdomen: + fundal height Fundus: + firm and + relation to umbilicus (2cm below ); not tender and not boggy Results & Data Vital Signs (Past 12 Hours) Vital Signs Temp Pulse Pulse Resp BP BP Pulse Ox 06/19/19 01:30 36.7 C 85 20 148/95 H 06/19/19 00:11 106 H 130/71 06/19/19 00:10 36.7 C 18 06/19/19 00:02 104 H 134/65 06/18/19 23:51 103 H 145/67 H 06/18/19 23:42 105 H 137/71 06/18/19 23:40 18 06/18/19 23:31 105 H 142/58 H 06/18/19 23:29 101 H 144/70 H 06/18/19 23:12 112 H 135/59 L 06/18/19 23:10 18 06/18/19 23:02 95 H 134/58 L 06/18/19 22:55 18 06/18/19 22:53 103 H 100 06/18/19 22:52 100 H 136/77 06/18/19 22:48 95 H 98 06/18/19 22:43 97 H 97 06/18/19 22:42 99 H 126/65 06/18/19 22:40 18 06/18/19 22:38 94 H 97 06/18/19 22:36 114 H 91 06/18/19 22:33 100 H 97 06/18/19 22:28 100 H 98 06/18/19 22:25 18 06/18/19 22:23 105 H 99 06/18/19 22:22 105 H 120/60 06/18/19 22:18 98 H 99 06/18/19 22:13 104 H 97 06/18/19 22:11 102 H 126/64 06/18/19 22:10 36.7 C 18 06/18/19 22:09 102 H 127/66 06/18/19 22:08 109 H 98 06/18/19 22:03 105 H 98 06/18/19 21:58 110 H 97 06/18/19 21:53 131 H 100 06/18/19 21:48 107 H 98 06/18/19 21:43 139 H 100 06/18/19 21:41 107 H 152/67 H 06/18/19 21:40 18 06/18/19 21:38 105 H 100 06/18/19 21:37 16 06/18/19 21:33 93 H 100 06/18/19 21:28 97 H 100 06/18/19 21:25 90 125/62 06/18/19 21:23 84 100 06/18/19 21:18 80 100 06/18/19 21:13 79 98 06/18/19 21:09 84 120/57 L 06/18/19 21:08 84 99 06/18/19 21:03 82 99 06/18/19 21:00 36.6 C 06/18/19 20:58 81 97 06/18/19 20:54 94 H 122/58 L 06/18/19 20:53 99 H 97 06/18/19 20:48 89 98 06/18/19 20:43 90 98 06/18/19 20:40 18 06/18/19 20:39 104 H 112/56 L 06/18/19 20:38 97 H 97 06/18/19 20:33 99 H 98 06/18/19 20:28 92 H 97 06/18/19 20:26 18 06/18/19 20:24 90 116/57 L 06/18/19 20:23 90 97 06/18/19 20:18 95 H 99 06/18/19 20:13 96 H 99 06/18/19 20:09 94 H 123/61 06/18/19 20:08 89 98 06/18/19 20:03 96 H 97 06/18/19 19:59 18 06/18/19 19:58 90 98 06/18/19 19:54 99 H 108/70 06/18/19 19:53 94 H 98 06/18/19 19:48 98 H 99 06/18/19 19:43 105 H 97 06/18/19 19:40 109 H 127/76 06/18/19 19:38 96 H 98 06/18/19 19:34 105 H 92 06/18/19 19:33 95 H 135/62 98 06/18/19 19:28 84 98 06/18/19 19:23 81 98 06/18/19 19:18 36.7 C 84 18 98 06/18/19 19:13 90 98 06/18/19 19:10 85 130/68 06/18/19 19:09 96 H 93 06/18/19 19:08 78 98 06/18/19 19:03 85 98 06/18/19 18:58 83 98 06/18/19 18:55 81 142/67 H 06/18/19 18:53 85 98 06/18/19 18:48 78 99 06/18/19 18:43 104 H 92 06/18/19 18:39 75 125/58 L 06/18/19 18:38 79 98 06/18/19 18:33 77 98 06/18/19 18:28 84 98 06/18/19 18:24 80 123/58 L 06/18/19 18:23 83 98 Resident Activity Tracking Resident Involvement: Resident Care Provided Care Provided: OB Delivery
[2019-06-19] MEDS: PRENATAL VITAMIN 1 TAB PO SCH (08:30)
[2019-06-19] MEDS: OXYCODONE/ACETAMINOPHEN 5mg/325mg TAB PO PRN ×3 (08:30→17:53)
[2019-06-19] MEDS: DOCUSATE SODIUM 100 MG CAP PO SCH ×2 (08:30→20:05)
[2019-06-19] MEDS ORDERED: BISACODYL 5 MG TABEC PO SCH (20:00)
[2019-06-20] MEDS: IBUPROFEN 600 MG TAB PO PRN ×2 (04:45→09:24)
--- NOTE | 2019-06-20 06:35 | Obstetrical Progress Note ---
Date of Service <Rickie Sanders DO - Last Filed: 06/20/19 06:35> June 20, 2019 Assessment & Plan <DO Estrellita Yu Last Filed: 06/20/19 06:35> (1) : -PPD#2 -Vitals reviewed, slight BP elevations overnight, max BP 142/83, likely chronic htn. Patient denies headache, RUQ pain, edema - GBS -, Blood Type O+ - Clinically stable. - Feels well today. Eating well, voiding well, ambulating well. - Pain well controlled. - Routine post- care - After discharge will have [address] Edie Hurd #:: 2 Subjective <Rickie Sanders DO Last Filed: 06/20/19 06:35> Ambulation: ambulating normally Voiding: no voiding problems Passing Gas:: Yes Diet Tolerance:: regular diet Lochia:: Small Feeding Type:: breast feeding Current Pain Level(1-10): 0 Patient is a 29 PPD#2. Patient states that she is feeling well today and that her pain is well controlled. She has no other complaints at this time. Constitutional: no fever and no chills Respiratory: no cough, no dyspnea and no wheezing Cardiovascular: no chest pain, no dyspnea, no palpitations, no edema and no calf pain Breast: no breast pain Gastrointestinal: no abdominal pain, no nausea and no vomiting Genitourinary (female): no dysuria and no difficulty urinating Neurologic: no headache(s) Physical Exam <DO Estrellita Yu Last Filed: 06/20/19 06:35> Constitutional WD/WN, vitals as above Respiratory normal respiratory effort, lungs clear to auscultation Cardiovascular Rate/Rhythm: regular rate and regular rhythm Heart Sounds: normal S1 and normal S2; no click, no gallop, no murmur and no cardiac rub Extremities: + edema (+1); no calf tenderness Gastrointestinal (Abdomen) Inspection/Auscultation: abdomen normal to inspection and normal bowel sounds Percussion/Palpation: + abdomen tender (slight TTP lower quadrants, appropriate) and abdomen soft Genitourinary OB Exam Abdomen: + fundal height Fundus: + firm and + relation to umbilicus (3cm below ); not tender and not boggy Results & Data <Rickie ReednDO - Last Filed: 06/20/19 06:35> Vital Signs (Past 12 Hours) Vital Signs Temp Pulse Resp BP Pulse Ox 06/19/19 23:05 36.8 C 86 16 134/78 98 06/19/19 19:30 36.7 C 84 16 142/83 H 98 <Fan Zhou MD - Last Filed: 06/20/19 08:28> Co-Signing Physician Notes Patient seen and evaluated and agree with the above findings and plan. Stable for discharge Resident Activity Tracking <Rickie Sanders DO - Last Filed: 06/20/19 06:35> Resident Involvement: Resident Care Provided Care Provided: OB Delivery
[2019-06-20] MEDS: PRENATAL VITAMIN 1 TAB PO SCH (08:09)
[2019-06-20] MEDS: DOCUSATE SODIUM 100 MG CAP PO SCH (08:09)
== END 2019-06-20 11:10 | disposition home or self-care (01) | DRG 807 ==
LOC: 4S1 07:36 → 4S2 06-19 00:59